=== PATIENT | female | born 1995 | race Caucasian/White ===

== ENCOUNTER 2025-03-15 21:31 | Emergency (ER) | payer OTHER, SELFPAY ==
[2025-03-15 21:33] VITALS: BP 156/104; PULSE 112; RESP 16; TEMP 36.3; O2SAT 100; BMI 25.8
--- NOTE | 2025-03-15 21:45 | RAD_ITS ---
PROCEDURE: LUMBAR SPINE 2 OR 3 VIEWS 03/15/2025 REASON FOR EXAM: BACK PAIN, BENT OVER TECHNIQUE: Procedure Code: RADSPLL Modality: DX Procedure: LUMBAR SPINE 2 OR 3 VIEWS FINDINGS: No evidence of acute fracture or dislocation. Vertebral body heights intervertebral disc spaces are maintained. Normal alignment. RAD/Lumbar Spine 2 or 3 Views IMPRESSION: No significant abnormality. Reading Location: [facility]
[2025-03-15] MEDS: Lidocaine 5% Patch 1 PATCH TOPICAL (21:57)
[2025-03-15 22:30] VITALS: BP 130/90; PULSE 78; RESP 18; TEMP 36.3; O2SAT 98
--- NOTE | 2025-03-16 00:08 | EDS_ITS ---
HPI History of Present Illness Chief Complaint: Back Narrative Narrative: Patient is a 29-year-old female presenting to the emergency department for back pain. Patient has no significant past medical history. She states that she was making dinner tonight when she squatted down to reach for a baking pak when she felt a pull in her left sided lower back. She states she was unable to stand up due to the spasming and pain in her back. She did not take anything for for pain prior to arrival. She denies any red flag back pain signs including saddle anesthesia, bowel or bladder incontinence or retention, numbness or weakness in her legs, fevers, IV drug use, recent weight loss or immunocompromise status. States that she walked into the emergency department without difficulty. PFSH PFS Medical History no medical history Home Medications ?Medication ?Instructions ?Recorded ?Last Taken ?Type cyclobenzaprine 5 mg tablet 5 mg PO TID PRN muscle spa sm #10 03/15/25 Unknown Rx tabs Allergy/AdvReac Type Severity Reaction Status Date / Time No Known Allergies Allergy Verified 03/15/25 21:32 Family History no significant family his Surgical History no surgical history Social History Smoking Status: Never smoker ROS ROS ED ROS Narrative see HPI EXAM Physical Exam Narrative Exam Narrative: Vital signs: Reviewed General: Alert and orientedx3. No acute distress. Well appearing, nontoxic. HEENT: Head is normocephalic and atraumatic, sinuses nontender, pupils equal round and reactive. Nares are patent. Oropharynx and throat exams normal. Neck: Supple without lymphadenopathy nontender Cardiovascular: Regular rate and rhythm, no murmurs. No rubs or gallops. Normal S1 and S2 Respiratory: Clear to auscultation bilaterally. No wheezes, rales, rhonchi Abdominal: Soft and nontender. Normal bowel sounds. No guarding or rebound. Nonsurgical abdomen Back: No midline cervical, thoracic or lumbar spinal tenderness to palpation. No step-offs or deformities. There is left upper lumbar paraspinal tenderness to palpation. There is no rash to the back. Extremities: No tenderness. No bruising. Normal range of motion. Normal sensation. Skin: No rash or redness. Neurological: Cranial nerves II through XII are grossly intact. Normal strength and sensation. Normal cerebellar function The rest of the physical exam is unremarkable Const Vital Signs: 03/15/25 21:33 03/15/25 22:30 Temperature 97.3 F L 97.3 F L Temperature Source Temporal Pulse Rate 112 H 78 Respiratory Rate 16 18 Blood Pressure 156/104 H 130/90 H Blood Pressure Mean 121 103 Pulse Ox 100 98 Oxygen Delivery Method Room Air MDM MDM MDM Narrative Medical decision making narrative: Patient is a 29-year-old female presenting to the emergency department for left- sided back pain. Patient was seen and examined. Vitals are stable. Patient resting on the side of the bed comfortably in no acute distress. Patient had no trauma or falls, I do not suspect compression fracture. States that she pulled something in her back when she bent over, likely a muscle strain. She has no red flag back pain signs as discussed in the HPI, I do not think she needs MRI imaging of her spinal cord. The pain was after a specific event, I do not think she needs CT imaging of her spine with IV contrast to rule out an epidural abscess. Patient was offered Toradol, Flexeril and Lidoderm patch for analgesia. Patient denying Toradol because she does not want a shot. She was given 800 mg of Motrin. Lumbar x-ray with no significant abnormalities noted. Patient and significant other updated on the negative xray and likely diagnosis. Educated on stretching, NSAIDs, warm compresses and Flexeril for home. All questions answered. Ambulates without difficulty. Patient discharged from the Emergency Department. I do not feel that the patient's evaluation reveals any acute reason for admission at this time. I instructed them to either follow-up with their primary care physician or promptly return to the Emergency Department for reevaluation should symptoms worsen or new symptoms develop. I explained what symptoms would indicate the need to return to the emergency department. Shared decision making was used. The patient voiced understanding of the treatment plan and is agreeable with it. Clinical impression: Back strain History & Record Review Discussion w/independent historian: Patient and Significant other Radiography Diagnostic Testing: Clinical Impression(s) from Imaging Studies Lumbar Spine X-Ray 03/15/25 21:45 IMPRESSION: No significant abnormality. Reading Location: [facility] Discharge Plan Triage Chief Complaint: Back ED Provider: Krystin López Dx/Rx/DC Orders Clinical Impression: Back strain Instructions: ED Back Sprain/Strain Prescriptions: New cyclobenzaprine 5 mg tablet 5 mg PO TID PRN (Reason: muscle spasm) Qty: 10 0RF Primary Care Provider: Care Physician,No Primary Referrals: Leslie Franklin MD [Med Staff - [employer], Internal Medicine] - As soon as possible Care Physician,No Primary [Primary Care Provider, Medical] Activity Restrictions/Additional Instructions: You can take the Flexeril every 8 hours for muscle spasms. Take Motrin every 8 hours for pain control. You can also apply the Lidoderm patch and remove after 12 hours. Your evaluation in the Emergency Department did not reveal any acute reason for admission. However, I want to emphasize that you may be early in the course of a disease process or illness even if it is not present. For this reason you should follow-up within 24 hours for reevaluation with either your primary care physician or if necessary back here in the Emergency Department. You should return to the Emergency Department immediately if your symptoms worsen or new symptoms develop. Print Language: Welsh Disposition Disposition: Home, Self Care Discharge Date/Time: 03/15/25 22:34
== END 2025-03-15 22:34 | disposition home or self-care (01) ==
PROVIDERS: Emergency Provider Student in an Organized Health Care Education/Training Program; Visit Provider Student in an Organized Health Care Education/Training Program
DX: S39.012A Strain of muscle, fascia and tendon of lower back, initial encounter (principal); X58.XXXA Exposure to other specified factors, initial encounter
CPT/HCPCS: 72100; 99283